=== PATIENT | male | born 1950 | race Caucasian/White ===

== ENCOUNTER → 2022-12-22 11:09 | Outpatient (CLI) | payer MEDICARE, SELFPAY ==
--- NOTE | 2022-12-22 | DI.US.S_ITS ---
PROCEDURE: US ABD AORTA ANEURYSM SCREEN INDICATIONS: Personal history of nicotine dependence TECHNIQUE: Real time scanning was performed of the aorta and iliac arteries, with image documentation. COMPARISON: None. FINDINGS: Aorta: Proximal aortic diameter measures 2.0 by 2.0 cm. Mid-aorta measures 2.0 x 1.3 cm. Distal aortic diameter is 2.0 x 1.2 cm. Iliac arteries: Right common iliac artery measures 0.9 cm. Left common iliac artery measures 1.0 cm. IMPRESSION: No abdominal aortic aneurysm. Dictated by: Rajendra Cantu M.D. on 12/22/2022 at 13:11 Approved by: Rajendra Cantu M.D. on 12/22/2022 at 13:12
== END ==
PROVIDERS: Referring Provider Internal Medicine Cardiovascular Disease; Visit Provider Internal Medicine Cardiovascular Disease
DX: Z87.891 Personal history of nicotine dependence (principal)
CPT/HCPCS: 76706

== ENCOUNTER → 2023-05-11 15:10 | Outpatient (CLI) | payer MEDICARE, SELFPAY ==
--- NOTE | 2023-05-11 | DI.US.S_ITS ---
PROCEDURE: US ARTERIAL DUPLEX LE BI INDICATIONS: PERIPHERAL NEUROPATHY TECHNIQUE: Color and pulse Doppler interrogation was performed of both lower extremity arterial systems, with image documentation. COMPARISON: None. FINDINGS: Right lower extremity: Common femoral artery: 118 cm/sec, with triphasic flow. Deep femoral artery: 59 cm/sec, with triphasic flow. Proximal superficial femoral artery: 130 cm/sec, with triphasic flow. Mid superficial femoral artery: 114 cm/sec, with triphasic flow. Distal superficial femoral artery: 102 cm/sec, with triphasic flow. Popliteal artery: 71 cm/sec, with triphasic flow. Posterior tibial artery: 82 cm/sec, with triphasic flow. Anterior tibial artery/dorsalis pedis: 104 cm/sec, with triphasic flow. Ludwig-scale imaging description: Widely patent vessels Left lower extremity: Common femoral artery: 119 cm/sec, with triphasic flow. Deep femoral artery: 64 cm/sec, with triphasic flow. Proximal superficial femoral artery: 112 cm/sec, with triphasic flow. Mid superficial femoral artery: 109 cm/sec, with triphasic flow. Distal superficial femoral artery: 81 cm/sec, with biphasic flow. Popliteal artery: 67 cm/sec, with biphasic flow. Posterior tibial artery: 78 cm/sec, with biphasic flow. Anterior tibial artery/dorsalis pedis: 70 cm/sec, with biphasic flow. Ludwig-scale imaging description: Widely patent vessels IMPRESSION: Unremarkable bilateral lower extremity duplex arterial ultrasound. Dictated by: Pedro Bajwa M.D. on 05/11/2023 at 17:13 Approved by: Pedro Bajwa M.D. on 05/11/2023 at 17:14
== END ==
PROVIDERS: PCP Internal Medicine; Referring Provider Internal Medicine; Visit Provider Internal Medicine
DX: G90.09 Other idiopathic peripheral autonomic neuropathy (principal)
CPT/HCPCS: 93925

== ENCOUNTER → 2023-07-22 12:30 | Outpatient (CLI) | payer MEDICARE, SELFPAY ==
--- NOTE | 2023-07-22 | DI.ECHO.S_ITS ---
[facility]---------+ [facility] +---------+ : : [address] : : : : [id number] : : : : Phone: [phone] Echocardiogram Report + + :Name: CARLO BOB Study Date: 07/22/2023 Height: 70 in : [facility] ReadingLocation: Weight: 160 lb : : Gender: Male BSA: 1.9 m2 : :: 1950 Age: 73 yrs BP: 113/68 mmHg: :Reason For Study: Nonrheumatic Mitral Valve Prolapse : :Ordering Physician: ISABELA, : :JENNIFER Jeffrey Performed By: Delphine Lam : :Referring: JENNIFER AREVALO : + + Interpretation Summary The ejection fraction is estimated to be 60-65%. Diastolic function could not be accurately assessed due to confounding valvular disease. The left atrium is moderately dilated. The right ventricle is normal in size and function. There is severe mitral valve prolapse with ruptured posterior scallop, likely P2. There is severe mitral regurgitation. There is trace aortic regurgitation. Pulmonary artery pressures cannot be estimated because of the lack of a measurable TR jet velocity but the IVC suggests a CVP of around 3 mmHg. Procedure: A two-dimensional transthoracic echocardiogram with color flow and Doppler was performed. The study quality was technically adequate. The patient had an echocardiogram, but there is no comparison study available. The patient was in a bradycardic rhythm during the exam. Left Ventricle: The left ventricle is normal in size. The ejection fraction is estimated to be 60-65%. Diastolic function could not be accurately assessed due to confounding valvular disease. Right Ventricle: The right ventricle is normal in size and function. Atria: The left atrium is moderately dilated. Right atrial size is normal. There is no Doppler evidence for an interatrial shunt. Mitral Valve: The mitral valve leaflets appear moderately thickened, but open well. There is severe mitral valve prolapse. Ruptured posterior scallop, likely P2. There is no mitral valve stenosis. There is severe mitral regurgitation. There is an eccentric jet of mitral regurgitation that is directed anterior. Aortic Valve: The aortic valve is trileaflet. The aortic valve is mildly calcified. There is no aortic valve stenosis. There is trace aortic regurgitation. Tricuspid Valve: The tricuspid valve is normal. There is no tricuspid stenosis. There is trace tricuspid regurgitation. Pulmonary artery pressures cannot be estimated because of the lack of a measurable TR jet velocity but the IVC suggests a CVP of around 3 mmHg. Pulmonic Valve: The pulmonic valve leaflets are thin and pliable; valve motion is normal. There is no pulmonic valvular stenosis. There is trace pulmonic regurgitation. Great Vessels: The aortic root is normal size. The ascending aorta is normal in size. The pulmonary artery is normal size. The IVC is of normal diameter and collapses greater than 50% with a sniff. This suggests a low right atrial pressure of 3 mm Hg. Pericardium/ Pleura There is no pericardial effusion. There is no pleural effusion. MMode/2D Measurements & Calculations LVIDd: 5.1 cm LVOT diam: 2.0 cm LVIDs: 3.2 cm Ao root diam: 3.4 cm FS: 37.3 % asc Aorta Diam: 3.3 cm IVSd: 1.3 cm LVPWd: 1.0 cm LV gonzalez. diameter/BSA (cm/m^2): 2.7 LV sys. diameter/BSA (cm/m^2): 1.7 LA A2 area: 17.0 cm2 RA long axis: 4.7 cm LA A4 area: 19.6 cm2 RA area: 13.3 cm2 LA length (vol): 4.6 cm RA vol: 32.3 ml LA vol: 61.0 ml RA : 17.0 ml/m2 LA vol index: 32.1 ml/m2 RVD1 (basal): 3.6 cm LVLs ap4: 6.0 cm LVLd ap2: 7.6 cm TAPSE_phl: 2.1 cm LVLs ap2: 6.5 cm Doppler Measurements & Calculations LVOT Max Miguel Angel: 96.4 cm/sec MV E max miguel angel: 80.6 cm/sec LV V1 max P.7 mmHg MV A max miguel angel: 63.0 cm/sec LV V1 VTI: 19.4 cm MV E/A: 1.3 Med Peak E' Miguel Angel: 8.1 cm/sec E/E' med: 10.0 Lat Peak E' Miguel Angel: 13.2 cm/sec E/E' lat: 6.1 E/e' average: 8.0 MV dec time: 0.23 sec TR max miguel angel: 211.5 cm/sec SV(LVOT): 61.1 ml TR max P.5 mmHg PA pr(Accel): 32.6 mmHg Reading Physician:05:12 PM
== END ==
PROVIDERS: PCP Internal Medicine; Referring Provider Internal Medicine Cardiovascular Disease; Visit Provider Internal Medicine Cardiovascular Disease
DX: I34.1 Nonrheumatic mitral (valve) prolapse (principal); I34.0 Nonrheumatic mitral (valve) insufficiency
CPT/HCPCS: 93306

== ENCOUNTER → 2024-08-08 10:48 | Outpatient (CLI) | payer MEDICARE, SELFPAY ==
--- NOTE | 2024-08-08 10:52 | DI.NM.S_ITS ---
PROCEDURE: NM BONE SCAN WHOLE BODY RADIOPHARMACEUTICAL: 21.4 mCi Tc-99m MDP IV. INDICATIONS: PAGETS BONE DISEASE TECHNIQUE: Delayed whole-body scintigrams were obtained approximately 3-4 hours after intravenous injection of radiotracer. Anterior and posterior views were acquired from vertex to feet. Additional left and right oblique views of the pelvis were obtained. COMPARISON: Outside Film, MR, MR LUMBAR SPINE WITHOUT CONTRAST, 02/24/2022, 14:30. [facility] Outside Film, CT, CT CHEST ABDOMEN PELVIS WITH CONTRAST, 04/19/2024, 13:46. FINDINGS: Focal abnormal uptake can be seen involving the T12 level, including the spinous process. This corresponds well to the prior outside CT appearance. No other definite abnormal uptake can be seen within the bones. Note is made of increased radiotracer activity within the right aspect of the cervical spine inferiorly, at the approximate C5 level. There is also mildly increased uptake seen on the left at the approximate L4-L5 level. Generalized degenerative changes are seen. No abnormal soft tissue uptake can be seen. The kidneys demonstrate normal positions. IMPRESSION: Focal abnormal uptake seen within the T12 level. The appearance is consistent with Paget's disease. Please also consider metastatic disease in a patient of this age. Prior trauma with remodeling is also possible. Areas of mild uptake seen within the cervical spine and lumbar spine are consistent with degenerative change. Dictated by: Urbano Barker M.D. on 08/08/2024 at 15:35 Approved by: Urbano Barker M.D. on 08/08/2024 at 15:41
== END ==
LOC: NUCM 10:50
PROVIDERS: PCP Internal Medicine; Referring Provider Physical Medicine & Rehabilitation; Visit Provider Physical Medicine & Rehabilitation
DX: M88.9 Osteitis deformans of unspecified bone (principal)
CPT/HCPCS: 78306; A9503

== ENCOUNTER → 2024-08-15 12:41 | Outpatient (CLI) | payer MEDICARE, SELFPAY ==
--- NOTE | 2024-08-15 12:42 | DI.ECHO.S_ITS ---
[facility] +---------+ [facility] : : [address] : : [id number] : : Phone: [phone] Echocardiogram Report + + :Name: CARLO BOB Study Date: 08/15/2024 Height: 70 in : :[facility] ReadingLocation: Weight: 150 lb : : Gender: Male BSA: 1.8 m2 : :: 1950 Age: 74 yrs BP: 125/78 mmHg: :Reason For Study: S/P MITRAL VALVE REPAIR HR: 80 : :Ordering Physician: ISABELA, : :JENNIFER Jeffrey Performed By: Ena Russ : :Referring: JENNIFER AREVALO : + + Interpretation Summary The ejection fraction is estimated to be 50-55%. Septal motion is consistent with post-operative state. Diastolic function could not be accurately assessed due to confounding valvular disease. The left atrium is mildly dilated. The right ventricle is at the upper limits of normal in size. Right ventricular systolic function is borderline reduced. An annuloplasty ring is noted in the mitral position. The mitral valve mean gradient is 4.2 mmHg, HR 80 bpm. There is mild tricuspid regurgitation. The right ventricular systolic pressure is estimated to be at least 25 mmHg based on an estimated right atrial pressure of 3 mm Hg. Compared to the prior study dated 07/22/2023, the left ventricle appears less dynamic with septal dyssynchrony and the mitral valve has been repaired with an annuloplasty ring and with neocords. Procedure: A two-dimensional transthoracic echocardiogram with color flow and Doppler was performed. The study quality was technically adequate. Comparison is made with the echocardiogram of 07/22/2023. The heart rate ranged between 79-84 bpm during the study. Left Ventricle: The left ventricle is normal in size and wall thickness. The ejection fraction is estimated to be 50-55%. Septal motion is consistent with post-operative state. Diastolic function could not be accurately assessed due to confounding valvular disease. Right Ventricle: The right ventricle is at the upper limits of normal in size. Right ventricular systolic function is borderline reduced. Atria: The left atrium is mildly dilated. Right atrial size is normal. There is no Doppler evidence for an interatrial shunt. Mitral Valve: An annuloplasty ring is noted in the mitral position. The mitral valve mean gradient is 4.2 mmHg. There is trace mitral regurgitation. Aortic Valve: The aortic valve is trileaflet. The aortic valve opens well. There is no aortic valve stenosis. There is trace aortic regurgitation. Tricuspid Valve: The tricuspid valve leaflets are thin and pliable. There is mild tricuspid regurgitation. The right ventricular systolic pressure is estimated to be at least 25 mmHg based on an estimated right atrial pressure of 3 mm Hg. Pulmonic Valve: The pulmonic valve leaflets are thin and pliable; valve motion is normal. There is mild pulmonic regurgitation. Great Vessels: The aortic root is normal size. The dimensions of the ascending aorta are normal. The IVC is of normal diameter and collapses greater than 50% with a sniff. This suggests a low right atrial pressure of 3 mm Hg. Pericardium/ Pleura There is no pericardial effusion. There is no pleural effusion. MMode/2D Measurements & Calculations LVIDd: 4.9 cm LVOT diam: 2.0 cm LVIDs: 3.6 cm Ao root diam: 3.5 cm FS: 27.4 % asc Aorta Diam: 3.4 cm IVSd: 0.97 cm Ao Arch Diam (Prox Trans): 2.6 cm LVPWd: 0.89 cm LV gonzalez. diameter/BSA (cm/m^2): 2.7 LV sys. diameter/BSA (cm/m^2): 1.9 LA A2 area: 22.0 cm2 RA long axis: 5.1 cm LA A4 area: 20.2 cm2 RA area: 16.4 cm2 LA length (vol): 5.7 cm RA vol: 45.1 ml LA vol: 65.6 ml RA : 24.4 ml/m2 LA vol index: 35.5 ml/m2 IVC diam: 1.0 cm RVD1 (basal): 4.0 cm RVD2 (mid): 3.1 cm TAPSE: 1.3 cm Doppler Measurements & Calculations Ao V2 max: 119.7 cm/sec LVOT Max Miguel Angel: 91.2 cm/sec Ao V2 mean: 87.7 cm/sec LV V1 max P.3 mmHg Ao max P.7 mmHg LV V1 VTI: 18.2 cm Ao mean P.3 mmHg BUCKY(I,D): 2.3 cm2 Ao V2 VTI: 25.0 cm BUCKY(V,D): 2.4 cm2 sev ratio: 0.73 BUCKY indexed to BSA (cm^2/m^2): 1.2 MV E max miguel angel: 98.5 cm/sec TR max miguel angel: 232.2 cm/sec MV A max miguel angel: 137.5 cm/sec TR max P.6 mmHg MV E/A: 0.72 PA V2 max: 88.1 cm/sec Med Peak E' Miguel Angel: 8.1 cm/sec PA V2 mean: 58.3 cm/sec E/E' med: 12.2 PA mean P.5 mmHg Lat Peak E' Miguel Angel: 9.7 cm/sec PA pr(Accel): 43.0 mmHg E/E' lat: 10.1 E/e' average: 11.1 MV dec time: 0.23 sec MVA(VTI): 1.8 cm2 MV V2 mean: 92.5 cm/sec SV(LVOT): 56.5 ml MV mean P.2 mmHg MV V2 VTI: 31.6 cm Reading Physician:04:37 PM
== END ==
PROVIDERS: PCP Internal Medicine; Referring Provider Internal Medicine Cardiovascular Disease; Visit Provider Internal Medicine Cardiovascular Disease
DX: Z98.890 Other specified postprocedural states (principal); I07.1 Rheumatic tricuspid insufficiency
CPT/HCPCS: 93306

== ENCOUNTER → 2024-09-21 12:13 | Outpatient (CLI) | payer MEDICARE, SELFPAY ==
--- NOTE | 2024-09-21 12:18 | DI.RAD.S_ITS ---
PROCEDURE: XR BONE SURVEY INDICATIONS: Paget bone disease TECHNIQUE: Multiple views obtained of various bony structures as described below. COMPARISON: None. FINDINGS: Skull (lateral): No suspicious bony lesions. No fractures. Thoracic spine (AP, lateral): No suspicious bony lesions. No acute vertebral body compression fractures. Degenerative disc disease throughout mid to lower thoracic spine is seen. Lumbar spine (AP, lateral): No suspicious bony lesions. No acute vertebral body compression fractures. Uvew-[id number] degenerative disc disease throughout lumbar spine is seen. Pelvis (AP): No suspicious bony lesions. No fractures. Overlying soft tissues appear unremarkable. Right and left humeri (AP): No suspicious bony lesions. No fractures. Overlying soft tissues appear unremarkable. Right and left femurs (AP): No suspicious bony lesions. No fractures. Overlying soft tissues appear unremarkable. No evidence of avascular necrosis of femoral heads. IMPRESSION: No suspicious lytic or sclerotic intraosseous lesions are noted visualized osseous structures. Dictated by: Gregg Cardona M.D. on 09/21/2024 at 14:30 Approved by: Gregg Cardona M.D. on 09/21/2024 at 14:32
--- NOTE | 2024-09-21 12:26 | DI.CT.S_ITS ---
PROCEDURE: CT CHEST WO CON INDICATIONS: Paget bone disease TECHNIQUE: Noncontrast 5 mm thick sections acquired from the pulmonary apices to the posterior costophrenic angles. 1 mm lung window, 5 mm thick coronal and sagittal and 7 mm axial MIP reformats were then acquired. For radiation dose reduction, the following was used: automated exposure control, adjustment of mA and/or kV according to patient size. COMPARISON: Outside Film, MR, MR LUMBAR SPINE WITHOUT CONTRAST, 02/24/2022, 14:30. SNO Outside Film, CT, CT CHEST ABDOMEN PELVIS WITH CONTRAST, 04/19/2024, 13:46. FINDINGS: Image quality: Diagnostic. Lower Neck: No enlarged lymph nodes. Thyroid: No thyroid nodules which require sonographic follow up, per consensus guidelines. Axillae: No enlarged lymph nodes. Chest Wall: Scarring in the lateral right breast. Bones: Sclerosis at T12, (5/76), unchanged. No compression fracture. Lungs and Pleura: No pneumothorax or pleural effusions. No acute airspace opacity. Right diaphragm pleural thickening or nodular opacity measuring 0.7 cm, (3/275), new. Increased density. Mild pleural thickening at the anterior mid right thorax, (3/179), new. Scattered calcified granuloma. Central airways are clear. Heart: Heart size is normal. Mitral valve replacement. Mild coronary artery calcifications. No pericardial effusion. Thoracic Vessels: The aorta and pulmonary arteries demonstrate normal size. Mediastinum and Kendy: No enlarged lymph nodes. Esophagus: No wall thickening. No hiatal hernia. Upper Abdomen: Visualized upper abdomen solid organs and bowel loops appear normal. IMPRESSION: 1. T12 sclerosis is unchanged. 2. A few small areas of pleural thickening in the right hemithorax which are new compared to the prior CT from March 2024. The clinical significance is uncertain. -Consider follow-up CT chest in 6-12 months. 3. No adenopathy. Dictated by: Brett Leiva M.D. on 09/22/2024 at 10:32 Approved by: Brett Leiva M.D. on 09/22/2024 at 10:46
== END ==
PROVIDERS: PCP Internal Medicine; Referring Provider Registered Nurse; Visit Provider Registered Nurse
DX: M88.9 Osteitis deformans of unspecified bone (principal); I25.10 Atherosclerotic heart disease of native coronary artery without angina pectoris; R07.89 Other chest pain; R19.09 Other intra-abdominal and pelvic swelling, mass and lump; M51.34 Other intervertebral disc degeneration, thoracic region; M51.369 Other intervertebral disc degeneration, lumbar region without mention of lumbar back pain or lower extremity pain; Z98.890 Other specified postprocedural states
CPT/HCPCS: 71250; 76705; 77075

== ENCOUNTER → 2024-09-21 12:19 | Outpatient (CLI) | payer MEDICARE, SELFPAY ==
--- NOTE | 2024-09-21 12:21 | DI.US.S_ITS ---
PROCEDURE: US ABDOMEN LIMITED INDICATIONS: PERSISTENT SWELLING IN GROIN TECHNIQUE: Real-time focused scanning was performed of the inguinal region, with image documentation. COMPARISON: SNO Outside Film, CT, CT CHEST ABDOMEN PELVIS WITH CONTRAST, 04/19/2024, 13:46. FINDINGS: Targeted ultrasound of the right groin palpable abnormality just superior to the prior catheter insertion site. There is a cystic area measuring at 3.2 x 3.1 x 1.8 cm, estimated volume of 9 cc. There is posterior through transmission. This is adjacent to the vasculature. Vascularity. This is located approximately 1 5 cm deep to the skin. IMPRESSION: Palpable abnormality at the right groin corresponds to a cystic area or fluid collection measuring 3.2 cm and approximately 9 cc. This could represent a small seroma or hematoma. No internal vascularity to suggest pseudoaneurysm or neoplasm. Dictated by: Brett Leiva M.D. on 09/22/2024 at 10:15 Approved by: Brett Leiva M.D. on 09/22/2024 at 10:17
== END ==
PROVIDERS: PCP Internal Medicine; Referring Provider Thoracic Surgery (Cardiothoracic Vascular Surgery); Visit Provider Thoracic Surgery (Cardiothoracic Vascular Surgery)
DX: R19.09 Other intra-abdominal and pelvic swelling, mass and lump (principal)
CPT/HCPCS: 76705

== ENCOUNTER → 2025-01-16 11:17 | Outpatient (CLI) | payer MEDICARE, SELFPAY ==
--- NOTE | 2025-01-16 11:18 | DI.MRI.S_ITS ---
PROCEDURE: MR LUMBAR SPINE WO CON INDICATIONS: LUMBAR RADICULOPATHY TECHNIQUE: Noncontrast sagittal T1 spin echo and T2 fast echo, sagittal STIR, and T2 fast spin echo through the lumbar spine. In cases with scoliosis, additional coronal T2 fast spin echo may be performed. COMPARISON: MR, MR LUMBAR SPINE WITHOUT CONTRAST, 02/24/2022, 14:30. FINDINGS: Image quality: Excellent. Alignment and Curvature: There is normal bony alignment. Bone Marrow: Mild Modic type 2 reactive endplate changes adjacent to the L5-S1 disc. No acute vertebral body compression fractures. Spinal Cord: Conus medullaris terminates at the L1 level. Visualized cord demonstrates normal signal and size. Paraspinous Soft Tissues: No paravertebral masses. T12-L1: Normal appearance. L1-L2: Loss of disc signal. Mild, diffuse disc bulge. Mild narrowing of the central canal. No neural foraminal narrowing. No neural compression. L2-L3: Loss of disc signal. Mild, diffuse disc bulge. Mild narrowing of the central canal. Mild bilateral neural foraminal narrowing. No neural compression. L3-L4: Loss of disc signal. Mild, diffuse disc bulge. Mild bilateral facet hypertrophy. Mild narrowing of the central canal. Moderate right and mild left neural foraminal narrowing. No neural compression. L4-L5: Loss of disc signal. Mild, diffuse disc bulge. Mild bilateral facet hypertrophy. Mild narrowing of the central canal. Moderate bilateral neural foraminal narrowing. No neural compression. L5-S1: Loss of disc signal and height. Mild, diffuse disc bulge. No central stenosis. Mild bilateral neural foraminal narrowing. No neural compression. IMPRESSION: Multilevel degenerative disc disease. Multilevel facet arthropathy. No severe central canal stenosis. No severe neural foraminal stenosis. No neural compression. Dictated by: Kasia Metz MD, PhD on 01/16/2025 at 13:12 Approved by: Kasia Metz MD, PhD on 01/16/2025 at 13:15
== END ==
PROVIDERS: PCP Internal Medicine; Referring Provider Registered Nurse; Visit Provider Registered Nurse
DX: M51.16 Intervertebral disc disorders with radiculopathy, lumbar region (principal); M51.17 Intervertebral disc disorders with radiculopathy, lumbosacral region; M47.26 Other spondylosis with radiculopathy, lumbar region; M47.27 Other spondylosis with radiculopathy, lumbosacral region; R20.2 Paresthesia of skin; G62.89 Other specified polyneuropathies
CPT/HCPCS: 72148

== ENCOUNTER → 2025-08-16 12:35 | Outpatient (CLI) | payer MEDICARE, SELFPAY ==
--- NOTE | 2025-08-16 12:36 | DI.ECHO.S_ITS ---
[facility] +---------+ [facility] : : [address] : : [id number] : : Phone: [phone] Echocardiogram Report + + :Name: CARLO BOB Study Date: 08/16/2025 Height: 70 in : :[facility] ReadingLocation: Weight: 155 lb : : Gender: Male BSA: 1.9 m2 : :: 1950 Age: 75 yrs BP: 125/75 mmHg: :Reason For Study: Mitral valve : :Ordering Physician: ISABELA, : :JENNIFER Jeffrey Performed By: Nitish Ash : :Referring: JENNIFER MAR : + + Interpretation Summary The ejection fraction is estimated to be 50-55%. Diastolic function could not be accurately assessed due to confounding valvular disease. The left atrium is mildly dilated. The right ventricle is normal size. Right ventricular systolic function is borderline reduced. An annuloplasty ring is noted in the mitral position. The mitral valve mean gradient is 3.1 mmHG at a heart rate of 61 BPM. There is mild tricuspid regurgitation. Pulmonary artery pressures cannot be estimated because of the lack of a measurable TR jet velocity but the IVC suggests a CVP of around 3 mmHg. No significant change compared to prior study 08/15/2024. Procedure: A two-dimensional transthoracic echocardiogram with color flow and Doppler was performed. The study quality was technically adequate. Comparison is made with the echocardiogram of 08/15/2024. The heart rate ranged between 60-70 bpm during the study. Left Ventricle: The left ventricle is normal in size and wall thickness. The ejection fraction is estimated to be 50-55%. Septal motion is consistent with post-operative state. Diastolic function could not be accurately assessed due to confounding valvular disease. Right Ventricle: The right ventricle is normal size. Right ventricular systolic function is borderline reduced. Atria: The left atrium is mildly dilated. Right atrial size is normal. There is no Doppler evidence for an interatrial shunt. Mitral Valve: The mitral valve leaflets appear moderately thickened. An annuloplasty ring is noted in the mitral position. The mitral valve mean gradient is 3.1 mmHG at a heart rate of 61 BPM. There is trace mitral regurgitation. Aortic Valve: The aortic valve is trileaflet. The aortic valve opens well. There is no aortic valve stenosis. No aortic regurgitation is present. Tricuspid Valve: The tricuspid valve is not well visualized, but is grossly normal. There is mild tricuspid regurgitation. Eccentric tricuspid regurgitation jet, severity and peak velocity may be underestimated. Pulmonary artery pressures cannot be estimated because of the lack of a measurable TR jet velocity but the IVC suggests a CVP of around 3 mmHg. Pulmonic Valve: The pulmonic valve is not well seen, but is grossly normal. There is trace pulmonic regurgitation. Great Vessels: The aortic root is normal size. The ascending aorta is normal in size. The aortic arch could not be visualized. The pulmonary artery is normal size. The IVC is of normal diameter and collapses greater than 50% with a sniff. This suggests a low right atrial pressure of 3 mm Hg. Pericardium/ Pleura There is no pericardial effusion. MMode/2D Measurements & Calculations LVIDd: 4.7 cm LVOT diam: 2.0 cm LVIDs: 3.3 cm Ao root diam: 3.2 cm FS: 29.7 % asc Aorta Diam: 3.3 cm EPSS: 0.63 cm IVSd: 1.0 cm LVPWd: 0.91 cm LV gonzalez. diameter/BSA (cm/m^2): 2.5 LV sys. diameter/BSA (cm/m^2): 1.8 LA A2 area: 24.5 cm2 RA long axis: 5.6 cm LA A4 area: 20.6 cm2 RA area: 16.5 cm2 LA length (vol): 5.8 cm RA vol: 41.7 ml LA vol: 74.1 ml RA : 22.3 ml/m2 LA vol index: 39.5 ml/m2 IVC diam: 1.6 cm RVD1 (basal): 3.1 cm RVD2 (mid): 2.4 cm TAPSE: 1.2 cm Doppler Measurements & Calculations Ao V2 max: 119.9 cm/sec LVOT Max Miguel Angel: 86.1 cm/sec Ao V2 mean: 82.1 cm/sec LV V1 max P.0 mmHg Ao max P.7 mmHg LV V1 VTI: 20.9 cm Ao mean P.1 mmHg BUCKY(I,D): 2.9 cm2 Ao V2 VTI: 22.5 cm BUCKY(V,D): 2.2 cm2 sev ratio: 0.93 BUCKY indexed to BSA (cm^2/m^2): 1.5 MV E max miguel angel: 86.0 cm/sec TR max miguel angel: 224.6 cm/sec MV A max miguel angel: 127.7 cm/sec TR max P.2 mmHg MV E/A: 0.67 PA V2 max: 84.5 cm/sec Med Peak E' Miguel Angel: 3.3 cm/sec PA V2 mean: 52.9 cm/sec E/E' med: 26.2 PA mean P.4 mmHg Lat Peak E' Miguel Angel: 6.7 cm/sec PA pr(Accel): 26.3 mmHg E/E' lat: 12.8 E/e' average: 19.5 MV dec time: 0.24 sec MVA(VTI): 1.7 cm2 MV V2 mean: 82.6 cm/sec SV(LVOT): 64.5 ml MV mean P.1 mmHg MV V2 VTI: 37.5 cm Qp/Qs (V,Ao): 1.0/2.4 Qp/Qs (V,LVOT): 1.5/1.0 Reading Physician:01:49 PM
== END ==
PROVIDERS: PCP Internal Medicine; Referring Provider Internal Medicine Cardiovascular Disease; Visit Provider Internal Medicine Cardiovascular Disease
DX: I07.1 Rheumatic tricuspid insufficiency (principal); Z98.890 Other specified postprocedural states
CPT/HCPCS: 93306